=== PATIENT | female | born 1965 | race Caucasian/White ===

== ENCOUNTER → 2024-01-08 06:12 | Day surgery (SDC) | payer OTHER, SELFPAY | LOC: GI 06:12 | PROVIDERS: ATTENDING PHYSICIAN Surgery | DX: Z12.11 Encounter for screening for malignant neoplasm of colon (principal); Z86.010 Personal history of colon polyps | CPT/HCPCS: G0105 ==

== ENCOUNTER → 2025-03-11 14:28 | Outpatient (REF) | payer OTHER, SELFPAY | LOC: WDC 14:28 | PROVIDERS: ATTENDING PHYSICIAN Obstetrics & Gynecology Gynecology; FAMILY PHYSICIAN Internal Medicine | DX: Z12.31 Encounter for screening mammogram for malignant neoplasm of breast (principal) | CPT/HCPCS: 77063; 77067 ==